=== PATIENT | female | born 2005 | race Two or more races ===

== ENCOUNTER 2025-03-13 14:05 | Emergency (ER) | payer MEDICAID ==
[~2025-03-13] VITALS: Ht 147.3 cm; Wt 47.6 kg
[2025-03-13 14:08] VITALS: TEMP 98
[2025-03-13] MEDS ORDERED: KETOROLAC TROMETHAMINE INJ 30 MG/ML VIAL ONE (14:54)
[2025-03-13] MEDS ORDERED: CYCLOBENZAPRINE 10 MG TABLET ONE (14:55)
[2025-03-13] MEDS: CYCLOBENZAPRINE 10 MG TABLET PO ONE (15:02)
[2025-03-13] MEDS: KETOROLAC TROMETHAMINE INJ 30 MG/ML VIAL IM ONE (15:02)
[2025-03-13] MEDS ORDERED: KETO10TA2 PO (16:48)
[2025-03-13] MEDS ORDERED: CYCL5TAB PO (16:48)
[2025-03-13 17:04] VITALS: BP 115/65; O2SAT 100
== END 2025-03-13 17:04 | disposition home or self-care (01) ==
LOC: ER 14:11
DX: S20.211A Contusion of right front wall of thorax, initial encounter (principal); X58.XXXA Exposure to other specified factors, initial encounter; Y93.89 Activity, other specified; Y92.89 Other specified places as the place of occurrence of the external cause; Y99.8 Other external cause status
CPT/HCPCS: 99283; 96372; 71100; J1885